=== PATIENT | female | born 1995 | race Two or more races ===

== ENCOUNTER 2018-09-17 23:53 | Emergency (ER) | payer BC ==
[~2018-09-17] VITALS: Ht 157.5 cm; Wt 79.4 kg
[2018-09-18] MEDS ORDERED: KETO10TA2 PO (03:41)
== END 2018-09-18 04:08 | disposition home or self-care (01) ==
LOC: ER 23:53
DX: S90.112A Contusion of left great toe without damage to nail, initial encounter (principal); W22.8XXA Striking against or struck by other objects, initial encounter; Y93.02 Activity, running; Y92.832 Beach as the place of occurrence of the external cause; Y99.8 Other external cause status